=== PATIENT | female | born 1945 | race Caucasian/White ===

== ENCOUNTER → 2024-08-21 | Outpatient (CLI) | payer MEDICARE, BC, SELFPAY ==
[2024-08-21 10:17] LABS: Basophils # (Auto) 0.1 Thou/mm3 (0.0-0.2); Basophils % (Auto) 1 % (0-2.5); Eosinophils # (Auto) 0.5 Thou/mm3 (0.0-0.5); Eosinophils % (Auto) 7 % (0-10); Hematocrit 36.8 % (36.0-46.0); Hemoglobin 11.2 g/dL (12.0-16.0); Immature Granulocytes % (Auto) 0 % (0-0); Immature Granulocytes Auto 0.02 Thou/mm3 (0.00-0.00); Lymphocytes # (Auto) 1.2 Thou/mm3 (1.0-4.8); Lymphocytes % (Auto) 19 % (10-50); Mean Corpuscular HGB Conc 30.4 g/dl (31.0-37.0); Mean Corpuscular Hemoglobin 30.8 pg (25.0-35.0); Mean Corpuscular Volume 101 fL (80-100); Monocytes # (Auto) 0.8 Thou/mm3 (0.0-0.8); Monocytes % (Auto) 12 % (0-12); Neutrophils # (Auto) 3.8 Thou/mm3 (1.8-7.7); Neutrophils % (Auto) 60 % (37-80); Nucleated Red Blood Cell % 0 /100 WBC (0); Platelet Count 175 Thou/mm3 (140-440); RDW Standard Deviation 64.9 fL (36.4-46.3); Red Blood Count 3.64 Miln/mm3 (4.00-5.20); White Blood Count 6.3 Thou/mm3 (3.6-11.0)
[2024-08-21 10:39] LABS: Vitamin B12 305 pg/mL (211-911); Vitamin D 25 Hydroxy Total 49.8 ng/mL (7.3-40.2)
[2024-08-21 10:40] LABS: Parathyroid Hormone Intact 47.1 pg/ml (18.5-88.0)
[2024-08-21 10:50] LABS: Alanine Aminotransferase 13 U/L (10-49); Albumin, Serum 4.4 gm/dL (3.4-4.8); Albumin/Globulin Ratio 1.8 (1.2-2.2); Alkaline Phosphatase 66 U/L (46-116); Anion Gap 8 (7-16); Aspartate Amino Transferase 26 U/L (0-34); BUN/Creatinine Ratio 15 Ratio (12-20); Bilirubin,Total 0.7 mg/dL (0.3-1.2); Blood Urea Nitrogen 21 mg/dL (9-23); Calcium 9.9 mg/dL (8.3-10.6); Calcium (Corrected) 9.9 mg/dL (8.5-10.1); Carbon Dioxide 28.7 mMol/L (20.0-31.0); Cardiac Risk Estimate 2.2 RATIO (3.7-5.6); Chloride 105 mMol/L (98-107); Cholesterol 132 mg/dL (132-200); Creatinine (Component) 1.4 mg/dL (0.6-1.3); Globulin 2.4 gm/dL (2.3-3.5); Glucose 86 mg/dL (74-106); HDL Cholesterol 60 mg/dL (40-60); LDL Cholesterol,Calculated 54 mg/dL (0-130); Osmolality,Calculated 285 (275-295); Potassium 3.6 mMol/L (3.4-5.1); Sodium 142 mMol/L (136-145); Thyroid Stimulating Hormone 0.21 uIU/mL (0.55-4.78); Total Protein 6.8 gm/dL (5.7-8.2); Triglycerides 91 mg/dL (30-150); eGFR 38 See Note
[2024-08-21 16:28] LABS: Collection Type, Urine Clean Catch
[2024-08-21 17:50] LABS: Bacteria,Urine Rare; Bilirubin,Urine Negative (Negative); Blood,Urine Negative (Negative); Clarity,Urine Clear (Clear/Hazy); Color,Urine Drk-Yellow (Lt Yel-Yel); Glucose, Urine Negative (Negative); Ketones,Urine Negative (Negative); Leukocyte Esterase,Urine Negative (Negative); Nitrite,Urine Negative (Negative); PH,Urine 6.5 (5.0-7.0); Protein,Urine 1+ (Neg - Trace); RBC,Urine 3 /hpf (0-3); Specific Gravity,Urine 1.021 (1.001-1.035); Squamous Epithelial Cell,Urine 1 /hpf (0-5); Urobilinogen,Urine Negative mg/dL (0.0-1.0); WBC,Urine 5 /hpf (0-5)
[2024-08-21 17:51] LABS: Creatinine MALB Rnd Ur 78 mg/dL (30-125); Microalbumin Creat Ratio 158 mg/gCrea (<30); Microalbumin, Random Urine 123 mg/L (0-300)
== END | disposition home or self-care (01) ==
LOC: COPL 08:22
PROVIDERS: PCP Internal Medicine; Referring Provider Internal Medicine; Visit Provider Internal Medicine
DX: I12.9 Hypertensive chronic kidney disease with stage 1 through stage 4 chronic kidney disease, or unspecified chronic kidney disease (principal); N18.30 Chronic kidney disease, stage 3 unspecified; E78.5 Hyperlipidemia, unspecified; E03.9 Hypothyroidism, unspecified; I44.7 Left bundle-branch block, unspecified; I25.110 Atherosclerotic heart disease of native coronary artery with unstable angina pectoris; D51.9 Vitamin B12 deficiency anemia, unspecified; E55.9 Vitamin D deficiency, unspecified
CPT/HCPCS: 36415; 80053; 80061; 81001; 82043; 82306; 82570; 82607; 83970; 84443; 85025

== ENCOUNTER 2024-12-10 13:35 | Emergency (ER) | payer MEDICARE, BC, SELFPAY ==
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
--- NOTE | 2024-12-10 13:42 | EKG_ITS ---
[facility] Test Date: 2024-12-10 Pat Name: VENKAT GARCIA Department: Room: - Gender: Female [employer] Operations Manager: : 1945 Requested By: Crescencio Matthew Order Number: [id number] Reading MD: Crescencio Matthew Measurements Intervals [place] Rate: 60 P: -80 VT: 156 QRS: 65 QRSD: 138 T: 54 QT: 485 QTc: 487 Interpretive Statements SINUS RHYTHM WITH FREQUENT VENTRICULAR PREMATURE COMPLEXES INTRAVENTRICULAR CONDUCTION DELAY [130+ ms QRS DURATION] POSSIBLE ANTERIOR MYOCARDIAL INFARCTION , OF INDETERMINATE AGE [30 ms Q WAVE IN V3/V4, OR R < 0.2 mV IN V4] Compared to ECG 04/08/2024 11:42:52 Myocardial infarct finding now present Sinus bradycardia no longer present /store/S0/[id number].pdf
--- NOTE | 2024-12-10 13:44 | XR_ITS ---
Examination: CT chest with intravenous contrast CT abdomen with intravenous contrast CT pelvis with intravenous contrast 2-D coronal and sagittal reconstructions Time of exam: December 10, 2024 1551 hours INDICATIONS: Patient fell today with injury to the right chest, right chest and abdomen pain CTDI: vol (mGy) : 7.37 DLP: (mGycm): 497 Technique: Multiple axial images of the chest, abdomen and pelvis with intravenous contrast, 3.0 mm slice thickness. Images obtained post intravenous injection Isovue 370 60 cc 2-D sagittal coronal reconstructions 3-D reconstructions Nodose protocols, automated exposure control, adjustment MA KV according to patient size FINDINGS: Thoracic aorta pulmonary arteries appear intact No hemopericardium Right medial apical and anterior pneumothorax, estimated 20% Pulmonary nodule with spiculated margins anterior right upper lobe, axial image 155, measuring 13 mm Enlarged cardiac contour with vascular congestion and right mild pleural fluid/hemothorax Fractures right fifth sixth seventh and eighth and ninth ribs anterolaterally, air density in the lateral thoracic wall Also fractures right sixth seventh eighth ninth tenth ribs posteriorly Manubrium, sternum, thoracic vertebral bodies intact No liver splenic or renal laceration Severe scarring both kidneys Abdominal aorta intact No free blood in the abdomen Negative for pneumoperitoneum Lumbar vertebral bodies sacral segments and iliac bones and hips intact with total right hip arthroplasty IMPRESSION: Multiple acute right rib fractures, several displaced as above Right medial, apical, anterior pneumothorax estimated 20% Small right hemothorax Consider right lower lobe pulmonary contusion No abdominal parenchymal laceration Abdominal aorta intact, no free blood in the abdomen or pelvis
[2024-12-10] MEDS: SODIUM CHLORIDE 0.9% 1000 ML 1,000 ML 999 ML IV (13:54)
[2024-12-10] MEDS: fentaNYL CIT INJ 50 mCg/ML AMP 2ML IVP (13:57)
[2024-12-10] MEDS: ONDANSETRON INJ 2 MG/ML INJ 2 ML 4 MG IVP (13:57)
[2024-12-10 14:00] VITALS: PULSE 62; RESP 18; O2SAT 73; BMI 22.1
[2024-12-10 14:00] LABS: Lactate (Lactic Acid) 1.2 mMol/L (0.4-2.0)
[2024-12-10 14:03] LABS: Basophils # (Auto) 0.1 Thou/mm3 (0.0-0.2); Basophils % (Auto) 1 % (0-2.5); Eosinophils # (Auto) 0.3 Thou/mm3 (0.0-0.5); Eosinophils % (Auto) 4 % (0-10); Hematocrit 35.2 % (36.0-46.0); Hemoglobin 11.4 g/dL (12.0-16.0); Immature Granulocytes Auto 0.03 Thou/mm3 (0.00-0.00); Lymphocytes # (Auto) 1.3 Thou/mm3 (1.0-4.8); Lymphocytes % (Auto) 17 % (10-50); Mean Corpuscular HGB Conc 32.4 g/dl (31.0-37.0); Mean Corpuscular Hemoglobin 31.8 pg (25.0-35.0); Mean Corpuscular Volume 98 fL (80-100); Monocytes # (Auto) 0.8 Thou/mm3 (0.0-0.8); Monocytes % (Auto) 11 % (0-12); Neutrophils # (Auto) 5.0 Thou/mm3 (1.8-7.7); Neutrophils % (Auto) 68 % (37-80); Nucleated Red Blood Cell # 0.00 Thou/mm3 (0.00-0.00); Nucleated Red Blood Cell % 0 /100 WBC (0); Platelet Count 181 Thou/mm3 (140-440); RDW Standard Deviation 58.6 fL (36.4-46.3); Red Blood Count 3.58 Miln/mm3 (4.00-5.20); White Blood Count 7.4 Thou/mm3 (3.6-11.0)
[2024-12-10 14:22] VITALS: BP 148/69; PULSE 64; RESP 32; TEMP 36.4; O2SAT 94
[2024-12-10 14:22] LABS: Alanine Aminotransferase 14 U/L (10-49); Albumin, Serum 4.3 gm/dL (3.4-4.8); Albumin/Globulin Ratio 1.7 (1.2-2.2); Alcohol, Blood Medical < 10.0 mg/dL (0-10.0); Alkaline Phosphatase 73 U/L (46-116); Anion Gap 8 (7-16); Aspartate Amino Transferase 33 U/L (0-34); BUN/Creatinine Ratio 14 Ratio (12-20); Bilirubin,Total 0.5 mg/dL (0.3-1.2); Blood Urea Nitrogen 18 mg/dL (9-23); Calcium 9.3 mg/dL (8.3-10.6); Calcium (Corrected) 9.3 mg/dL (8.5-10.1); Carbon Dioxide 28.0 mMol/L (20.0-31.0); Chloride 107 mMol/L (98-107); Creatinine (Component) 1.3 mg/dL (0.6-1.3); Estimated Creatinine Clearance 28.1 mL/min (>60); Globulin 2.5 gm/dL (2.3-3.5); Glucose 133 mg/dL (74-106); Lipase 45 U/L (12-53); Osmolality,Calculated 288 (275-295); Potassium 3.4 mMol/L (3.4-5.1); Sodium 143 mMol/L (136-145); Total Protein 6.8 gm/dL (5.7-8.2); eGFR 41 See Note
[2024-12-10 14:24] LABS: INR 1.1 (0.9-1.3); Partial Thromboplastin Time 24.5 Seconds (22.0-36.0); Prothrombin Time 11.5 Seconds (9.0-12.2)
[2024-12-10 14:32] VITALS: PULSE 90
--- NOTE | 2024-12-10 14:47 | PC.NURSE ---
RECEIVED VERBAL ORDER FROM ER PROVIDER FOR 4MG MORPHINE IV.
[2024-12-10] MEDS: MORPHINE SULF INJ 10 MG/ML VIAL 4 MG IVP ×3 (14:58→17:50)
--- NOTE | 2024-12-10 15:17 | PC.NURSE ---
RECEIVED VERBAL ORDER FROM DR HILL FOR ANOTHER 4MG MORPHINE DUE TO PATIENT'S CONTINUED RIGHT RIB PAIN
--- NOTE | 2024-12-10 16:37 | PC.CC ---
Addendum entered by Newton Art RN 12/10/24 17:47: 1740 Reach contacted for transport to [facility] with right side chest tube with hooked to suction. ETA approximately 1800. Packet made. Addendum entered by Newton Art RN 12/10/24 17:00: 1645 Connie from [facility] called back with accepting information, Dr. Sanchez ED to ED. Report to be called to [phone]. ED Charge nurse made aware. [facility] requested Dr. Ahuja to put in chest tube prior to transferring patient. Original Note: 1640 Received call back from Connie, transfer nurse at [facility], clinicals reviewed, requesting to speak with Dr. Matthew. Call transferred. 1630 Clinicals sent to [facility], left message for transfer center. [address] Berman for transfer pf patient for General Surgery for patient with multiple acute right sided rib fractures with a small hemopneumothorax.
--- NOTE | 2024-12-10 17:19 | PC.NURSE ---
PATIENT STATES PAIN 10/10. INFORMED ER PROVIDER AND RECEIVED VERBAL ORDER FOR 4MG MORPHINE IV
[2024-12-10] MEDS: BUPIVACAINE MPF 0.5% 10 ML VIAL 20 ML INFL (18:01)
--- NOTE | 2024-12-10 18:18 | XR_ITS ---
Examination: AP chest single view TECHNIQUE: AP portable upright chest single view Date and time: December 10, 2024, 1818 hours INDICATIONS: Chest trauma today, multiple displaced right rib fractures, right pneumothorax on CT chest examination today post chest tube placement FINDINGS: Right chest tube satisfactory position Tiny right apical pneumothorax, less than 5% Multiple right-sided rib fractures Mild nodular cardiac contour with prominent vascular congestion Possible mild contusion at the right base IMPRESSION: Right chest tube satisfactory position with satisfactory expansion right lung
[2024-12-10 18:21] VITALS: BP 128/63; PULSE 63; RESP 22; TEMP 36.6; O2SAT 100
--- NOTE | 2024-12-10 18:27 | PC.NURSE ---
Patient states pain 9/10 after procedure. Informed ER provider and received verbal order for 0.5mg Hydromorphone IV
[2024-12-10] MEDS: HYDROmorphone INJ 2 MG/ML VIAL 0.5 MG IVP (18:37)
--- NOTE | 2024-12-10 18:43 | PC.NURSE ---
Report given to Nae at [facility]. Patient taken by [facility] and [place] for air transport.
== END 2024-12-10 18:55 | disposition short-term general hospital (02) ==
PROVIDERS: Emergency Provider Emergency Medicine; PCP Internal Medicine
DX: S22.41XA Multiple fractures of ribs, right side, initial encounter for closed fracture (principal); S27.2XXA Traumatic hemopneumothorax, initial encounter; S27.321A Contusion of lung, unilateral, initial encounter; R91.8 Other nonspecific abnormal finding of lung field; I49.3 Ventricular premature depolarization; I10 Essential (primary) hypertension; E78.00 Pure hypercholesterolemia, unspecified; W19.XXXA Unspecified fall, initial encounter; Z75.1 Person awaiting admission to adequate facility elsewhere
CPT/HCPCS: 36415; 71045; 71260; 74177; 80053; 80307; 80320; 81001; 83605; 83690; 85025; 85610; 85730; 93005; 96361; 96372; 96374; 96375; 96376; 99285; A4649; J1171; J2270; J2405; J3010; J3490; J7030; Q9967; G0480

== ENCOUNTER → 2024-12-19 | Outpatient (CLI) | payer MEDICARE, BC, SELFPAY ==
[2024-12-19 09:51] LABS: Collection Type, Urine Clean Catch
[2024-12-19 10:17] LABS: Basophils # (Auto) 0.0 Thou/mm3 (0.0-0.2); Basophils % (Auto) 0 % (0-2.5); Eosinophils # (Auto) 0.5 Thou/mm3 (0.0-0.5); Eosinophils % (Auto) 6 % (0-10); Hematocrit 34.7 % (36.0-46.0); Hemoglobin 10.6 g/dL (12.0-16.0); Immature Granulocytes Auto 0.05 Thou/mm3 (0.00-0.00); Lymphocytes # (Auto) 1.3 Thou/mm3 (1.0-4.8); Lymphocytes % (Auto) 14 % (10-50); Mean Corpuscular HGB Conc 30.5 g/dl (31.0-37.0); Mean Corpuscular Hemoglobin 32.1 pg (25.0-35.0); Mean Corpuscular Volume 105 fL (80-100); Monocytes # (Auto) 0.8 Thou/mm3 (0.0-0.8); Monocytes % (Auto) 9 % (0-12); Neutrophils # (Auto) 6.5 Thou/mm3 (1.8-7.7); Neutrophils % (Auto) 71 % (37-80); Nucleated Red Blood Cell # 0.00 Thou/mm3 (0.00-0.00); Nucleated Red Blood Cell % 0 /100 WBC (0); Platelet Count 234 Thou/mm3 (140-440); RDW Standard Deviation 63.6 fL (36.4-46.3); Red Blood Count 3.30 Miln/mm3 (4.00-5.20); White Blood Count 9.2 Thou/mm3 (3.6-11.0)
[2024-12-19 10:21] LABS: Bacteria,Urine Rare; Bilirubin,Urine Negative (Negative); Blood,Urine Negative (Negative); Clarity,Urine Clear (Clear/Hazy); Color,Urine Drk-Yellow (Lt Yel-Yel); Glucose, Urine Negative (Negative); Ketones,Urine Negative (Negative); Leukocyte Esterase,Urine Negative (Negative); Nitrite,Urine Negative (Negative); PH,Urine 6.0 (5.0-7.0); Protein,Urine Negative (Neg - Trace); RBC,Urine 4 /hpf (0-3); Specific Gravity,Urine 1.023 (1.001-1.035); Squamous Epithelial Cell,Urine 2 /hpf (0-5); Urobilinogen,Urine Negative mg/dL (0.0-1.0); WBC,Urine 3 /hpf (0-5)
[2024-12-19 11:01] LABS: Alanine Aminotransferase 25 U/L (10-49); Albumin, Serum 4.0 gm/dL (3.4-4.8); Alkaline Phosphatase 72 U/L (46-116); Anion Gap 14 (7-16); Aspartate Amino Transferase 39 U/L (0-34); BUN/Creatinine Ratio 12 Ratio (12-20); Bilirubin,Direct 0.3 mg/dL (0.0-0.3); Bilirubin,Total 0.8 mg/dL (0.3-1.2); Blood Urea Nitrogen 13 mg/dL (9-23); Calcium 9.5 mg/dL (8.3-10.6); Carbon Dioxide 24.1 mMol/L (20.0-31.0); Cardiac Risk Estimate 2.1 RATIO (3.7-5.6); Chloride 107 mMol/L (98-107); Cholesterol 123 mg/dL (132-200); Creatinine (Component) 1.1 mg/dL (0.6-1.3); Free T4 (Free Thyroxine) 1.70 ng/dL (0.89-1.76); Glucose 89 mg/dL (74-106); HDL Cholesterol 58 mg/dL (40-60); LDL Cholesterol,Calculated 43 mg/dL (0-130); Osmolality,Calculated 287 (275-295); Phosphorous 3.2 mg/dL (2.4-5.1); Potassium 5.2 mMol/L (3.4-5.1); Sodium 145 mMol/L (136-145); Thyroid Stimulating Hormone 2.05 uIU/mL (0.55-4.78); Total Protein 6.5 gm/dL (5.7-8.2); Triglycerides 110 mg/dL (30-150); eGFR 50 See Note
== END | disposition home or self-care (01) ==
LOC: COPL 09:25
PROVIDERS: PCP Internal Medicine; Referring Provider Internal Medicine; Visit Provider Internal Medicine
DX: E03.9 Hypothyroidism, unspecified (principal); E78.5 Hyperlipidemia, unspecified; I12.9 Hypertensive chronic kidney disease with stage 1 through stage 4 chronic kidney disease, or unspecified chronic kidney disease; N18.30 Chronic kidney disease, stage 3 unspecified
CPT/HCPCS: 36415; 80048; 80061; 80076; 81001; 84100; 84439; 84443; 85025

== ENCOUNTER → 2025-02-25 | Outpatient (CLI) | payer MEDICARE, BC, SELFPAY ==
--- NOTE | 2025-02-25 12:00 | XR_ITS ---
Examination: Bone densitometry Date and time of exam:February 25, 2025, 1217 hours INDICATIONS: Hysterectomy age 46 pneumothorax and 20 years estrogen 18 years Technique: Lumbar spine and hip total bone mineralization values of an calculated. Peak reference and age match control results have been displayed. Findings: Lumbar spine total bone mineralization is1.330 gm/cm2. This is 2.6 standard deviations above peak reference. This is 5.3 standard deviations above age-matched controls. Hip total bone mineralization is 0.825 gm/cm2 This is 1.0 standard deviations below peak reference. This is 1.2 standard deviations above age-matched controls Impression: There is normal mineralization based on lumbar spine measurements. There is osteopenia based on hip measurements Lumbar mineralization is increased 5.2% compared with January 13, 2022 Hip mineralization is decreased 10.1% compared with January 13, 2022
== END | disposition home or self-care (01) ==
PROVIDERS: PCP Internal Medicine; Referring Provider Internal Medicine; Visit Provider Internal Medicine
DX: M85.89 Other specified disorders of bone density and structure, multiple sites (principal)
CPT/HCPCS: 77080

== ENCOUNTER → 2025-03-19 | Outpatient (CLI) | payer MEDICARE, BC, SELFPAY ==
--- NOTE | 2025-03-19 10:00 | XR_ITS ---
Examination: Screening digital mammography, bilateral Computer aided detection 3-D breast Tomosynthesis, bilateral Date and time of exam: 03/19/2025, 9:57 a.m. Comparisons: 07/05/2018 through January 2024 Indications: Screening Technique: Nonmagnified MLO, CC views of the breasts to been obtained, reconstructed from 3-D Tomosynthesis images. R2 computer aided detection program utilized for evaluation of suspicious masses and/or abnormal calcifications. 3-D Tomosynthesis images obtained. Technologist: Findings: The breasts are heterogeneously dense, which may obscure small masses. No evidence of abnormal masses or suspicious calcifications. Impression: BI-RADS category 1: Negative findings (within normal) Recommend 1 year follow-up mammogram
== END | disposition home or self-care (01) ==
LOC: CDIM 09:48
PROVIDERS: Referring Provider Internal Medicine; Visit Provider Internal Medicine
DX: Z12.31 Encounter for screening mammogram for malignant neoplasm of breast (principal); R92.313 Mammographic fatty tissue density, bilateral breasts
CPT/HCPCS: 77063; 77067

== ENCOUNTER → 2025-05-11 | Outpatient (CLI) | payer MEDICARE, BC, SELFPAY ==
[2025-05-11 10:09] LABS: Basophils # (Auto) 0.1 Thou/mm3 (0.0-0.2); Basophils % (Auto) 1 % (0-2.5); Eosinophils # (Auto) 0.4 Thou/mm3 (0.0-0.5); Eosinophils % (Auto) 5 % (0-10); Hematocrit 36.6 % (36.0-46.0); Hemoglobin 10.7 g/dL (12.0-16.0); Immature Granulocytes Auto 0.03 Thou/mm3 (0.00-0.00); Lymphocytes # (Auto) 2.4 Thou/mm3 (1.0-4.8); Lymphocytes % (Auto) 37 % (10-50); Mean Corpuscular HGB Conc 29.2 g/dl (31.0-37.0); Mean Corpuscular Hemoglobin 29.2 pg (25.0-35.0); Mean Corpuscular Volume 100 fL (80-100); Monocytes # (Auto) 0.7 Thou/mm3 (0.0-0.8); Monocytes % (Auto) 11 % (0-12); Neutrophils # (Auto) 3.0 Thou/mm3 (1.8-7.7); Neutrophils % (Auto) 45 % (37-80); Nucleated Red Blood Cell # 0.00 Thou/mm3 (0.00-0.00); Nucleated Red Blood Cell % 0 /100 WBC (0); Platelet Count 205 Thou/mm3 (140-440); RDW Standard Deviation 65.4 fL (36.4-46.3); Red Blood Count 3.67 Miln/mm3 (4.00-5.20); White Blood Count 6.6 Thou/mm3 (3.6-11.0)
[2025-05-11 10:43] LABS: Alanine Aminotransferase 9 U/L (10-49); Albumin, Serum 4.3 gm/dL (3.4-4.8); Alkaline Phosphatase 73 U/L (46-116); Aspartate Amino Transferase 28 U/L (0-34); Bilirubin,Direct 0.2 mg/dL (0.0-0.3); Bilirubin,Total 0.5 mg/dL (0.3-1.2); Cardiac Risk Estimate 2.0 RATIO (3.7-5.6); Cholesterol 117 mg/dL (132-200); Free T4 (Free Thyroxine) 1.68 ng/dL (0.89-1.76); HDL Cholesterol 58 mg/dL (40-60); LDL Cholesterol,Calculated 42 mg/dL (0-130); Phosphorous 3.1 mg/dL (2.4-5.1); Thyroid Stimulating Hormone 0.31 uIU/mL (0.55-4.78); Total Protein 7.1 gm/dL (5.7-8.2); Triglycerides 84 mg/dL (30-150)
[2025-05-11 12:41] LABS: Collection Type, Urine Clean Catch
[2025-05-11 13:45] LABS: Bacteria,Urine Rare; Bilirubin,Urine Negative (Negative); Blood,Urine Negative (Negative); Clarity,Urine Clear (Clear/Hazy); Color,Urine Yellow (Lt Yel-Yel); Glucose, Urine Negative (Negative); Ketones,Urine Negative (Negative); Leukocyte Esterase,Urine Negative (Negative); Nitrite,Urine Negative (Negative); PH,Urine 7.0 (5.0-7.0); Protein,Urine 1+ (Neg - Trace); RBC,Urine 3 /hpf (0-3); Specific Gravity,Urine 1.024 (1.001-1.035); Squamous Epithelial Cell,Urine 1 /hpf (0-5); Transitional Epi Cells,Urine 2 /hpf (0-5); Urobilinogen,Urine Negative mg/dL (0.0-1.0); WBC,Urine 4 /hpf (0-5)
== END | disposition home or self-care (01) ==
LOC: COPL 09:35
PROVIDERS: PCP Internal Medicine; Referring Provider Internal Medicine; Visit Provider Internal Medicine
DX: E78.5 Hyperlipidemia, unspecified (principal); I12.9 Hypertensive chronic kidney disease with stage 1 through stage 4 chronic kidney disease, or unspecified chronic kidney disease; N18.30 Chronic kidney disease, stage 3 unspecified; E03.9 Hypothyroidism, unspecified
CPT/HCPCS: 36415; 80061; 80076; 81001; 84100; 84439; 84443; 85025